=== PATIENT | female | born 1990 | race Two or more races ===

== ENCOUNTER 2017-10-10 06:13 | Emergency (ER) | payer MEDICAID ==
[~2017-10-10] VITALS: Ht 167.6 cm; Wt 99.8 kg
[2017-10-10 06:35] VITALS: BP 121/62
--- NOTE | 2017-10-10 06:42 | Emergency Room Report ---
History of Present Illness General Chief Complaint: Abdominal Pain Source: Patient Present Illness HPI 26-year-old female presents with epigastric pain that woke her up at 4 AM, 3 hours prior to presentation. Associated with nausea. Pain is sharp, 8 out of 10 radiating to back. No associated vomiting, fever or chills or diarrhea. Patient also endorses some dysuria without polyuria. Denies history of prior abdominal pelvic surgery or frequent bladder infections. She tried taking some Motrin for pain but was unable to tolerate. Allergies: Coded Allergies: No Known Allergies (Unverified , 10/10/17) Patient History Past Medical History: none Past Surgical History: none Pertinent Family History: none Social History: Denies: smoking, alcohol use, drug use Last Menstrual Period: 6 weeks ago Now: No Immunizations: UTD Reviewed Nursing Documentation: PMH: Agreed; PSxH: Agreed Nursing Documentation-PMH Past Medical History: No Stated History Review of Systems All Other Systems: negative except mentioned in HPI Physical Exam Vital Signs Date Time Temp Pulse Resp B/P (MAP) Pulse Ox O2 Delivery O2 Flow Rate FiO2 10/10/17 06:17 98.3 71 18 110/73 98 Room Air 98.2 Sp02 EP Interpretation: reviewed, normal General Appearance: normal inspection, well appearing, no apparent distress, alert, GCS 15, non-toxic, obese Head: normocephalic, atraumatic Eyes: bilateral eye PERRL, bilateral eye EOMI ENT: normal ENT inspection, hearing grossly normal, normal pharynx, no angioedema, normal voice, TMs + canals normal, uvula midline, moist mucus membranes Neck: normal inspection, full range of motion, supple, thyroid normal, no meningismus, no bony tend Respiratory: normal inspection, lungs clear, normal breath sounds, no rhonchi, no respiratory distress, no retraction, no accessory muscle use, no wheezing, speaking full sentences Cardiovascular #1: regular rate, rhythm, no edema, no JVD, normal capillary refill Gastrointestinal: normal inspection, normal bowel sounds, soft, no mass, no peritonitis, non-distended, no guarding, no hernia, no pulsatile mass, other - epigastric and RUQ ttp. Genitourinary: no CVA tenderness Musculoskeletal: normal inspection, back normal, normal range of motion, no calf tenderness, pelvis stable, Mavis's Sign negative Neurologic: normal inspection, alert, oriented x3, responsive, house fellow III-XII nml as tested, motor strength/tone normal, cerebellar normal, normal gait, speech normal Psychiatric: normal inspection, judgement/insight normal, mood/affect normal, no suicidal/homicidal ideation, no delusions Skin: normal inspection, normal color, no rash Lymphatic: normal inspection, no adenopathy Medical Decision Making Diagnostic Impression: Primary Impression: Abdominal pain Qualified Codes: R10.11 - Right upper quadrant pain Additional Impressions: Cholelithiasis Qualified Codes: K80.20 - Calculus of gallbladder without cholecystitis without obstruction UTI (urinary tract infection) Qualified Codes: N30.00 - Acute cystitis without hematuria ER Course RUQ abd pain VSS, afebrile No leukocytosis or LFT abnormality Ultrasound shows cholelithiasis, without evidence of cholecystitis Patient feels better after medication however on serial exam still has tenderness to right upper quadrant Dr Valderrama consulted given continued pain Does not recommend acute surgical intervention at this time - see his consult note for full recommendations Patient has PMD, will f/up for outpatient surgery consult UA grossly infected - will be DCed with Abx ER course: Patient has remained stable during ED stay. Disposition: Patient is to be discharged to home. Prescriptions given are macrobid Patient is instructed to follow up with their primary care doctor within 5 days. Patient is instructed to follow up with gen surg specialist within 3 days. Strict return precautions discussed with patient such as fever, chills, worsening/severe pain, nausea, vomiting, which may indicate severe illness. Patient verbalizes understanding and agrees with plan. Please note that this Emergency Department Report was dictated using [employer] technology software, occasionally this can lead to erroneous entry secondary to interpretation by the dictation equipment Last Vital Signs Date Time Temp Pulse Resp B/P (MAP) Pulse Ox O2 Delivery O2 Flow Rate FiO2 10/10/17 06:35 98.2 77 23 121/62 100 Room Air 98.2 Status: improved Disposition: HOME, SELF-CARE MAMIE GALLAGHER M.D. Oct 10, 2017 06:42
[2017-10-10] MEDS ORDERED: Ketorolac 30mg Inj IV ONE (06:45)
[2017-10-10 06:56] LABS: APPEARANCE,URINE SLIGHTLY CLOUDY; BILIRUBIN, URINE NEGATIVE (NEGATIVE); COLOR,URINE PALE YELLOW; GLUCOSE, URINE (UA) NEGATIVE (NEGATIVE); KETONES,URINE NEGATIVE (NEGATIVE); LEUKOCYTE ESTERASE ,URINE 3+ (NEGATIVE); NITRITE,URINE NEGATIVE (NEGATIVE); PH,URINE 5 (4.5-8.0); PROTEIN,URINE NEGATIVE (NEGATIVE); UROBILINOGEN,URINE NORMAL MG/DL (0.0-1.0)
[2017-10-10 07:11] LABS: ANION GAP 9 mmol/L (5-15); BLOOD UREA NITROGEN 10 mg/dL (7-18); CALCIUM 8.5 MG/DL (8.5-10.1); CARBON DIOXIDE 24 MMOL/L (21-32); CHLORIDE 105 MMOL/L (98-107); CREATININE 0.8 MG/DL (0.55-1.30); SODIUM 138 MMOL/L (136-145)
[2017-10-10 07:15] LABS: ALANINE AMINOTRANSFERASE 26 U/L (12-78); ALBUMIN 3.4 G/DL (3.4-5.0); ALBUMIN/GLOBULIN RATIO 0.9 (1.0-2.7); ALKALINE PHOSPHATASE 85 U/L (46-116); ASPARTATE AMINO TRANSFERASE 11 U/L (15-37); BILIRUBIN,TOTAL 0.2 MG/DL (0.2-1.0)
[2017-10-10 07:24] LABS: BASOPHILS % (AUTO) 0.9 % (0.0-2.0); EOSINOPHILS % (AUTO) 1.3 % (0.0-3.0); HEMATOCRIT 36.8 % (37.0-47.0); HEMOGLOBIN 12.8 G/DL (12.0-16.0); LYMPHOCYTES % (AUTO) 33.5 % (20.0-45.0); MEAN CORPUSCULAR VOLUME 91 FL (80-99); MONOCYTES % (AUTO) 6.2 % (1.0-10.0); NEUTROPHILS % (AUTO) 58.2 % (45.0-75.0); PLATELET COUNT 214 K/UL (150-450); RED BLOOD COUNT 4.04 M/UL (4.20-5.40); WHITE BLOOD COUNT 7.9 K/UL (4.8-10.8)
[2017-10-10 09:57] VITALS: BP 118/72
[2017-10-10] MEDS ORDERED: NITROFURANTOIN100 M2 ORAL (10:11)
[2017-10-10 10:18] VITALS: BP 118/72
--- NOTE | 2017-10-10 12:01 | Diagnostic Imaging Report ---
Indication: Epigastric and right upper quadrant abdominal pain, abnormal lipase Technique: Mccloud-scale and duplex images of the upper abdomen were obtained Comparison: none Findings: There is extensive shadowing in the gallbladder fossa. Sonographic Burk's sign is negative. Common bile duct measures 6 mm in diameter. No intrahepatic biliary ductal dilatation. Liver demonstrates normal echogenicity, no focal abnormality. Portal vein and hepatic veins are patent. Pancreas is unremarkable. Spleen is unremarkable. Left kidney measures 12.2 cm in length. Right kidney measures 11.8 cm length. Both kidneys demonstrate normal echogenicity. There is no hydronephrosis. Tiny echogenic foci are seen in the right renal sinus. No focal abnormality on the left.. Non-aneurysmal abdominal aorta . Impression: Cholelithiasis. Negative for dilated ducts Echogenic right renal sinus foci, small nonobstructive calculi versus artifactual
== END 2017-10-10 10:20 | disposition home or self-care (01) ==
LOC: EMR 06:49
DX: R10.13 Epigastric pain (principal); K80.20 Calculus of gallbladder without cholecystitis without obstruction; N39.0 Urinary tract infection, site not specified
CPT/HCPCS: 36415; 76700; 80053; 81003; 81025; 83690; 85025; 87086; 96374; 96375; 99283; J1885; J2405

== ENCOUNTER 2019-03-02 19:25 | Emergency (ER) | payer MEDICAID ==
[~2019-03-02] VITALS: Ht 170.2 cm; Wt 107.5 kg
[~2019-03-02 19:25] MED LIST: NITROFURANTOIN100 M2 ORAL
--- NOTE | 2019-03-02 19:40 | NUR ---
ED Nurse Note: Pt walked in c/o headache, n/v/d, dizziness for 2 days. Pt stated she ate some chicken and had n/v. patient reports abdominal pain 8/10 lower medial abdomen. family at bedside. ao4. nad. vss.
--- NOTE | 2019-03-02 19:45 | NUR ---
ED Nurse Note: iv access established. blood and urine collected; sent down to lab.
[2019-03-02] MEDS ORDERED: Ketorolac 30mg Inj IV ONE (20:00)
[2019-03-02] MEDS ORDERED: Omnipaque-300 100ml vial INJ PRN (20:00)
--- NOTE | 2019-03-02 20:00 | NUR ---
ED Nurse Note: flu swab collected; sent down to lab.
[2019-03-02 20:05] VITALS: BP 115/75
[2019-03-02 20:15] LABS: BASOPHILS % (AUTO) 0.4 % (0.0-2.0); EOSINOPHILS % (AUTO) 0.3 % (0.0-3.0); HEMATOCRIT 37.1 % (37.0-47.0); HEMOGLOBIN 12.9 G/DL (12.0-16.0); LYMPHOCYTES % (AUTO) 18.1 % (20.0-45.0); MEAN CORPUSCULAR VOLUME 90 FL (80-99); MONOCYTES % (AUTO) 6.3 % (1.0-10.0); NEUTROPHILS % (AUTO) 74.9 % (45.0-75.0); PLATELET COUNT 180 K/UL (150-450); RED BLOOD COUNT 4.12 M/UL (4.20-5.40); RED CELL DISTRIBUTION WIDTH 10.2 % (11.6-14.8); WHITE BLOOD COUNT 5.5 K/UL (4.8-10.8)
[2019-03-02 20:17] LABS: APPEARANCE,URINE CLOUDY; BILIRUBIN, URINE NEGATIVE (NEGATIVE); GLUCOSE, URINE (UA) NEGATIVE (NEGATIVE); KETONES,URINE NEGATIVE (NEGATIVE); LEUKOCYTE ESTERASE ,URINE 2+ (NEGATIVE); NITRITE,URINE NEGATIVE (NEGATIVE); PH,URINE 6 (4.5-8.0); PROTEIN,URINE NEGATIVE (NEGATIVE); UROBILINOGEN,URINE 4 MG/DL (0.0-1.0)
[2019-03-02 20:21] LABS: COLOR,URINE YELLOW
[2019-03-02 20:22] LABS: ANION GAP 9 mmol/L (5-15); BLOOD UREA NITROGEN 8 mg/dL (7-18); CALCIUM 7.7 MG/DL (8.5-10.1); CARBON DIOXIDE 25 MMOL/L (21-32); CHLORIDE 107 MMOL/L (98-107); CREATININE 0.7 MG/DL (0.55-1.30); POTASSIUM 3.2 MMOL/L (3.5-5.1); SODIUM 141 MMOL/L (136-145)
[2019-03-02 20:26] LABS: ALANINE AMINOTRANSFERASE 22 U/L (12-78); ALBUMIN 3.6 G/DL (3.4-5.0); ALBUMIN/GLOBULIN RATIO 1.1 (1.0-2.7); ALKALINE PHOSPHATASE 81 U/L (46-116); ASPARTATE AMINO TRANSFERASE 14 U/L (15-37); BILIRUBIN,TOTAL 0.6 MG/DL (0.2-1.0)
--- NOTE | 2019-03-02 20:43 | Emergency Room Report ---
History of Present Illness General Chief Complaint: Nausea, Vomiting, and Diarrhea Source: Patient (Nancy Powell) Present Illness HPI 28-year-old female status post cholecystectomy x9 months with obesity and no other past medical history here complaining of sudden onset of epigastric abdominal pain and multiple bouts of nonbloody emesis and nonbloody diarrhea. Patient reports that her symptoms started at 2 AM this morning after consuming homemade chicken. Patient denies consumption of spicy and acidic food. Denies any alcohol intake, drug use, tobacco smoke. Complains of low-grade fever that started this morning and chills. Planes of dizziness due to multiple bouts of vomiting. Denies urinary symptoms, chest pain, shortness of breath, palpitation , and all other associated symptoms. Rating the pain 7 out of 10 without radiation. Reports flatulence. Has not taken medication other than Tylenol for symptom relief. Patient appears in mild distress with temperature of 100 F. Patient also reports that she gets her menstrual periods irregularly for several months however denies . Denies history of ovarian cyst, uterine fibroids. Denies vaginal bleeding at this time (Nancy Powell) Allergies: Coded Allergies: No Known Allergies (Unverified , 10/10/17) Patient History Past Medical History: see triage record Past Surgical History: unable to obtain Pertinent Family History: none Last Menstrual Period: 01/2019 Now: No Immunizations: UTD Reviewed Nursing Documentation: PMH: Agreed; PSxH: Agreed (Nancy Powell) Nursing Documentation-PMH Past Medical History: No Stated History (Nancy Powell) Review of Systems All Other Systems: negative except mentioned in HPI (Nancy Powell) Physical Exam Vital Signs Date Time Temp Pulse Resp B/P (MAP) Pulse Ox O2 Delivery O2 Flow Rate FiO2 03/02/19 19:31 100.4 88 16 115/75 (88) 96 Room Air Sp02 EP Interpretation: abnormal - Temperature 100 F General Appearance: alert, GCS 15, non-toxic, mild distress Head: normocephalic, atraumatic Eyes: bilateral eye normal inspection, bilateral eye PERRL ENT: hearing grossly normal, normal pharynx, no angioedema, normal voice, TMs + canals normal, uvula midline Neck: full range of motion, supple, supple/symm/no masses Respiratory: chest non-tender, lungs clear, normal breath sounds, no rhonchi, no retraction, no wheezing, speaking full sentences Cardiovascular #1: regular rate, rhythm, no edema, no murmur Gastrointestinal: normal bowel sounds, soft, no mass, no organomegaly, no peritonitis, no bruit, non-distended, no guarding, no pulsatile mass, no rebound Rectal: deferred Genitourinary: no CVA tenderness Musculoskeletal: back normal, gait/station normal, normal range of motion, non- tender, no calf tenderness Neurologic: alert, oriented x3, responsive, motor strength/tone normal, sensory intact, speech normal Psychiatric: normal inspection, judgement/insight normal Skin: no rash Lymphatic: no adenopathy, axilla node tender (R) (Nancy Powell) Medical Decision Making PA Attestation All diagnoses and treatment plans were reviewed and discussed with my supervising physician Dr. Lange (Nancy Powell) Diagnostic Impression: Primary Impression: Acute gastroenteritis Additional Impression: UTI (urinary tract infection) ER Course 28-year-old female status post cholecystectomy x9 months with obesity and no other past medical history here complaining of sudden onset of epigastric abdominal pain and multiple bouts of nonbloody emesis and nonbloody diarrhea. Patient reports that her symptoms started at 2 AM this morning after consuming homemade chicken. Patient denies consumption of spicy and acidic food. Denies any alcohol intake, drug use, tobacco smoke. Complains of low-grade fever that started this morning and chills. Planes of dizziness due to multiple bouts of vomiting. Denies urinary symptoms, chest pain, shortness of breath, palpitation , and all other associated symptoms. Rating the pain 7 out of 10 without radiation. Reports flatulence. Has not taken medication other than Tylenol for symptom relief. Patient appears in mild distress with temperature of 100 F. Patient also reports that she gets her menstrual periods irregularly for several months however denies . Denies history of ovarian cyst, uterine fibroids. Denies vaginal bleeding at this time Ddx considered but are not limited to: appendicitis, cholecystis, gastritis, gastroenteritis, UTI, pyelonephritis, SBO, diverticulitis, influenza with GI manifestation, PA, complication with Vital signs: are WNL, pt. is febrile H&PE are most consistent with: gastroenteritis, UTI ORDERS: abdominal CT, abdominal pain set, EKG, macrobid, zofran, omeprazole. ED INTERVENTIONS: NS bolus, Zofran, Pepcid, Toradol DISCHARGE: At this time pt. is stable for d/c to home. Will provide printed patient care instructions, and any necessary prescriptions. Care plan and follow up instructions have been discussed with the patient prior to discharge. (Nancy Powell) EKG Diagnostic Results Rate: normal Rhythm: NSR ST Segments: no acute changes Other Impression No acute ST changes (Nancy Powell) Chest X-Ray Diagnostic Results Chest X-Ray Diagnostic Results : Chest X-Ray Ordered: Yes # of Views/Limited/Complete: 1 View Indication: Other EP Interpretation: Yes PA Xray: Interpretation reviewed, by supervising MD, and agrees with findings. Interpretation: no consolidation, no effusion, no pneumothorax Impression: No acute disease Electronically Signed by: Nancy Weaver PA-C (Nancy Powell) Chest X-Ray Diagnostic Results : Electronically Signed by: Tete Wick documentation of Xray reviewed by me and is accurate, Maik Lange MD (Maik Lange MD) CT/MRI/US Diagnostic Results CT/MRI/US Diagnostic Results : Imaging Test Ordered: CT abdomen pelvis with contrast Impression CT ABDOMEN & PELVIS With Contrast: Normal appendix. Unremarkable GI tract. Status post cholecystectomy. The liver, pancreas, spleen, adrenal glands, kidneys, and reproductive organs are within normal limits. (Nancy oPwell) Last Vital Signs Date Time Temp Pulse Resp B/P (MAP) Pulse Ox O2 Delivery O2 Flow Rate FiO2 03/02/19 20:34 100.4 03/02/19 20:05 88 16 115/75 96 Room Air (Nancy Powell) Disposition: HOME, SELF-CARE Condition: Stable Scripts Omeprazole (OMEPRAZOLE) 20 Mg Tablet. 20 MG ORAL DAILY, #20 TAB Prov: Nancy Powell 03/02/19 Ondansetron (Zofran) 4 Mg Tablet 4 MG ORAL Q6H PRN for Nausea & Vomiting, #10 TAB Prov: Nancy Powell 03/02/19 Nitrofurantoin Monohyd/M-Cryst* (MACROBID 100 MG*) 100 Mg Capsule 100 MG ORAL EVERY 12 HOURS for 7 Days, #14 CAP Prov: Nancy Powell 03/02/19 Patient Instructions: Urinary Tract Infection, [id number], Viral Gastroenteritis, Adult, [id number] Additional Instructions: Take medication as directed, follow-up with your primary care provider, if worsening symptoms return to the emergency room. Avoid eating spicy and greasy food. Nancy Powell Mar 02, 2019 20:43 Maik Lange MD Mar 03, 2019 01:25
[2019-03-02 21:30] VITALS: BP 122/75
--- NOTE | 2019-03-02 21:57 | Diagnostic Imaging Report ---
CT ABDOMEN AND PELVIS WITH CONTRAST INDICATION: Abdominal pain TECHNIQUE: Continuous helical transaxial imaging of the abdomen and pelvis was obtained from the lung bases to the pubic symphysis during intravenous contrast administration. Coronal 2-D reformats were also obtained. Study obtained in a Siemens sensation [address] Automatic Exposure Control was utilized. Total Dose length Product (DLP): 1137.[address] Dose Index Volume (CTDIvol): 18.7 mGy COMPARISON: Abdominal ultrasound dated 10/10/2017 FINDINGS: Lower chest:: Unremarkable. Hepatobiliary:: Status post cholecystectomy. Genitourinary:: No hydronephrosis. Urinary bladder is under distended, limiting evaluation. Adrenals:: Unremarkable. Pancreas:: Unremarkable. Gastrointestinal:: No evidence of obstruction. Appendix is normal. Spleen: : Unremarkable. Peritoneum:: Unremarkable. Bones and soft tissues:: Unremarkable. IMPRESSION: No acute findings in the abdomen or pelvis. These findings are concordant with the [facility] preliminary report. The CT scanner at [facility] is accredited by the [employer] and the scans are performed using protocols designed to limit radiation exposure to as low as reasonably achievable to attain images of sufficient resolution adequate for diagnostic evaluation.
[2019-03-02] MEDS ORDERED: ZOFRAN4 M1 ORAL (21:58)
[2019-03-02] MEDS ORDERED: NITROFURANTOIN100 M2 ORAL (21:58)
[2019-03-02] MEDS ORDERED: OMEPRAZOLE20 M3 ORAL (21:58)
[2019-03-02 22:00] VITALS: BP 122/75
--- NOTE | 2019-03-02 22:00 | NUR ---
ER DISCHARGE NOTE: Patient is cleared to be discharged per ERMD, pt is aox4, on room air, with stable vital signs. accompanied by family member. pt was given dc and prescription instructions, pt was able to verbalize understanding, pt id band and iv site removed without complications. pt is able to ambulate with steady gait. pt took all belongings.
--- NOTE | 2019-03-03 10:40 | Diagnostic Imaging Report ---
Indication: Reason For Exam: PAIN Technique: Single AP view of the chest. Comparison: None. Findings: Heart is normal in size. There is prominence of the main pulmonary artery.. There is no focal consolidation, pneumothorax or pleural effusion. Osseous structures demonstrate no acute abnormality. IMPRESSION: 1. No radiographic evidence of acute cardiopulmonary process. 2. Prominence of the main pulmonary artery suggestive of pulmonary arterial hypertension.
--- NOTE | 2019-03-05 07:29 | Cardiology Report ---
APPROVED REPORT EKG Measurement Heart [id number] Normal sinus rhythm Incomplete right bundle branch block Cannot rule out Anterior infarct, age undetermined Abnormal ECG
== END 2019-03-02 22:00 | disposition home or self-care (01) ==
LOC: EMR 20:00
DX: K52.9 Noninfective gastroenteritis and colitis, unspecified (principal); N39.0 Urinary tract infection, site not specified; Z90.49 Acquired absence of other specified parts of digestive tract; R07.9 Chest pain, unspecified
CPT/HCPCS: 36415; 71045; 74177; 80053; 80307; 81001; 81025; 83690; 84484; 85025; 85610; 85730; 86710; 87086; 93005; 96361; 96374; 96375; J1885; J2405; J7030; Q9967; S0028; Z7502; 99284; J8499